=== PATIENT | male | born 1975 | race Caucasian/White ===

== ENCOUNTER 2017-03-04 23:14 | Emergency (ER) | payer BC ==
[2017-03-04] MEDS ORDERED: COD LIVER OIL1 EACH (23:25)
== END 2017-03-05 00:32 | disposition home or self-care (01) ==
LOC: SED 23:14
DX: S01.81XA Laceration without foreign body of other part of head, initial encounter (principal); Z79.899 Other long term (current) drug therapy; W22.8XXA Striking against or struck by other objects, initial encounter; Y93.11 Activity, swimming; Y92.009 Unspecified place in unspecified non-institutional (private) residence as the place of occurrence of the external cause; Y99.8 Other external cause status
CPT/HCPCS: 12011; 99283

== ENCOUNTER 2017-04-17 00:43 | Emergency (ER) | payer OTHER ==
[~2017-04-17] VITALS: Ht 190.5 cm; Wt 88.5 kg
--- NOTE | ~2017-04-17 | EKG ---
PATIENT: JESUSITA ZHENG UNIT #: [id number] Ventricular Rate: 43 BPM Atrial Rate: 43 BPM P-R Interval: 130 ms QRS Duration: 92 ms Q-T Interval: 468 ms QTC Calculation(Bezet): 395 ms P Citra: 46 degrees Calculated R Citra: 38 degrees Calculated T Citra: 42 degrees Diagnosis Line: Marked sinus bradycardia Diagnosis Line: Abnormal ECG Diagnosis Line: No previous ECGs available Diagnosis Line: Confirmed by DENISE MARTINEZ MD ([id number]) on Diagnosis Line: 04/18/2017 12:45:02 PM INTERPRETING MD: JUAN COSTA
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
[~2017-04-17 00:43] MED LIST: COD LIVER OIL1 EACH
[2017-04-17] MEDS ORDERED: NAPROXEN (00:51)
== END 2017-04-17 03:33 | disposition home or self-care (01) ==
LOC: SED 00:43
DX: S13.4XXA Sprain of ligaments of cervical spine, initial encounter (principal); Z88.8 Allergy status to other drugs, medicaments and biological substances; V49.49XA Driver injured in collision with other motor vehicles in traffic accident, initial encounter
CPT/HCPCS: 72125; 93005; 99284